=== PATIENT | female | born 1970 | race Caucasian/White ===

== ENCOUNTER 2021-08-25 07:00 | Outpatient (RCR) | payer MEDICAID, SELFPAY | END 2021-09-15 09:53 | disposition home or self-care (01) | LOC: PT.CARL 07:00 | PROVIDERS: Visit Provider Physician Assistant | DX: M65.812 Other synovitis and tenosynovitis, left shoulder (principal) | CPT/HCPCS: 20560; 97010; 97014; 97033; 97035; 97110; 97163; G0283 ==

== ENCOUNTER 2021-12-13 08:00 | Outpatient (RCR) | payer MEDICAID, SELFPAY | END 2021-12-13 09:00 | disposition home or self-care (01) | LOC: OT 08:00 | PROVIDERS: Visit Provider Orthopaedic Surgery | DX: M75.102 Unspecified rotator cuff tear or rupture of left shoulder, not specified as traumatic | CPT/HCPCS: 97010; 97014; 97035; 97110; 97140; 97164; 97165; 97530; G0283 ==

== ENCOUNTER 2022-03-14 07:00 | Outpatient (RCR) | payer MEDICAID, SELFPAY | END 2022-03-14 12:00 | disposition home or self-care (01) | LOC: PT.CARL 07:00 | PROVIDERS: Visit Provider Orthopaedic Surgery | DX: M75.122 Complete rotator cuff tear or rupture of left shoulder, not specified as traumatic (principal); Z98.1 Arthrodesis status | CPT/HCPCS: 97010; 97014; 97033; 97035; 97110; 97140; 97163; 97164; G0283 ==

== ENCOUNTER 2023-09-12 07:00 | Outpatient (RCR) | payer MEDICAID, SELFPAY | END 2023-10-02 17:55 | disposition home or self-care (01) | LOC: PT 07:00 | PROVIDERS: Visit Provider Orthopaedic Surgery | DX: M70.62 Trochanteric bursitis, left hip (principal) | CPT/HCPCS: 20560; 97010; 97014; 97035; 97110; 97140; 97163; G0283 ==